=== PATIENT | male | born 1955 | race Caucasian/White ===

== ENCOUNTER → 2024-10-29 | Outpatient (REF) | payer MEDICARE ==
[~2024-10-29] MED LIST: AMLODIPINE BESYL5 MG PO; ANDROGEL2.5 GM; BENICAR HCT 201 EACH; BENICAR HCT 401 EAC1 PO; NAPROXEN500 MG
== END ==
LOC: US 14:56
PROVIDERS: ATTEND Internal Medicine
DX: E05.90 Thyrotoxicosis, unspecified without thyrotoxic crisis or storm (principal)
CPT/HCPCS: 76536